=== PATIENT | female | born 1980 | race Caucasian/White ===

== ENCOUNTER 2017-05-24 01:33 | Emergency (ER) | payer BC ==
[2017-05-24 02:16] LABS: Bilirubin Negative (Negative); Blood, Urine Moderate (Negative); Glucose, Urine (Dipstick) Negative (Negative); Ketone, Urine Negative (Negative); Nitrite Negative (Negative); Protein, Urine (Dipstick) 30 mg/dL (Neg-Trace)
[2017-05-24 02:18] LABS: Bacteria/HPF Rare-Few HPF (None Seen); RBC/HPF 21-50 HPF (0-3); Squamous Epithelial 0-3 HPF (0-3)
[2017-05-24 02:37] LABS: Hyaline Casts/LPF NONE SEEN LPF (0-3 Hyaline)
== END 2017-05-24 02:17 | disposition left against medical advice (07) ==
LOC: ERS 01:33
DX: Z53.21 Procedure and treatment not carried out due to patient leaving prior to being seen by health care provider (principal)
CPT/HCPCS: 81003; 81015; 81025

== ENCOUNTER 2017-05-28 18:59 | Inpatient (IN) | payer BC ==
[2017-05-28 20:00] LABS: Bilirubin Negative (Negative); Blood, Urine Moderate (Negative); Clarity CLOUDY (Clear); Glucose, Urine (Dipstick) Negative (Negative); Leukocyte Moderate (Negative); Nitrite Negative (Negative); Protein, Urine (Dipstick) Negative (Neg-Trace); Specific Gravity, Urine 1.012 (1.002-1.036); Urobilinogen 0.2 mg/dL (0.2-1.0)
[2017-05-28 20:03] LABS: Bacteria/HPF Rare-Few HPF (None Seen); Hyaline Casts/LPF 0-3 HYALINE CAST LPF (0-3 Hyaline); Pathc Cast-AUWi Flag 0.81 (0-2.49); WBC/HPF 21-50 HPF (0-3)
[2017-05-28 20:04] LABS: Pregnancy Test - Urine (BHCG) Negative (Negative); Pregu Control Background? CLEAR/WHITE (CLR/WHITE); Pregu Control Bar Appear? YES (CONTROL BAR); Specific Gravity 1.012 (1.002-1.036)
[2017-05-28 20:17] LABS: #Basophils 0.1 thou/uL (0.0-0.2); #Eosinphils 0.3 thou/uL (0.0-0.7); #Monocytes 1.1 thou/uL (0.11-0.59); #Neutrophils 9.7 thou/uL (1.40-6.50); %Basophils 0.6 % (0.0-1.0); %Eosinophils 2.3 % (0.0-10.0); %Lymphocytes 21.2 % (21.0-51.0); %Monocytes 7.5 % (0.0-10.0); %Neutrophils 68.3 % (42.0-75.0); Hemoglobin 13.2 g/dL (12.0-16.0); Mean Corpuscular HGB CONC 32.5 g/dL (32.0-36.0); Mean Corpuscular Hemoglobin 29.7 pg (27.0-31.0); Mean Corpuscular Volume 91.4 fl (81.0-99.0); Mean Platelet Volume 6.9 fL (7.4-10.4); Platelet Count 365 thou/uL (130-400); RBC Distribution Width 11.7 % (11.5-14.5); Red Blood Cell (RBC) Count 4.45 mill/uL (4.20-5.40); White Blood Cell (WBC) Count 14.2 thou/uL (4.8-10.8)
[2017-05-28 20:38] LABS: ALT (SGPT) 15 U/L (8-55); AST (SGOT) 13 U/L (5-34); Albumin 4.1 g/dL (3.5-5.0); Alkaline Phosphatase 77 U/L (40-150); Anion Gap 13 mmol/L (10-20); BUN (Urea Nitrogen) 11 mg/dL (7.0-18.7); Bilirubin, Total 0.2 mg/dL (0.2-1.2); Calc. Creatinine Clearance 0 mL/min (70-130); Calcium 9.7 mg/dL (7.8-10.44); Carbon Dioxide 28 mmol/L (22-29); Chloride 101 mmol/L (98-107); Estimated GFR-MDRD 58; Globulin 3.7 g/dL (2.4-3.5); Glucose 101 mg/dL (70-105); Protein, Total 7.8 g/dL (6.0-8.3); Sodium 138 mmol/L (136-145)
[2017-05-28] MEDS ORDERED: Ketorolac Tromethamine 30 MG/ML VIAL ONE (21:25)
--- NOTE | 2017-05-28 21:41 | CT ---
CT OF ABDOMEN AND PELVIS PERFORMED WITHOUT CONTRAST ENHANCEMENT: 05/28/17 HISTORY: Left flank pain. COMPARISON: 09/26/16 study. Lung bases are clear of infiltrative process. The liver, spleen, pancreas, and gallbladder regions are unremarkable. Right and left adrenal glands are normal. Right and left kidneys are normal in size. There is some pu nctate right renal calculi with some mild right sided hydronephrosis related to an approximately 6 mm calculus which is located at the S1 vertebral body level. This was present on the prior examination. The degree of hydronephrosis is less pronounced. On the left side, there is left sided hydronephrosis and hydroureter related to a proximal left urete ral calculus located just at the ureteropelvic junction level. It measures 8 to 9 mm. There are multi ple lower pole left renal calculi similar in size and other tiny punctate renal calculi. There is no significant periaortic or mesenteric adenopathy. CT OF PELVIS PERFORMED WITHOUT CONTRAST ENHANCEMENT: No adenopathy, mass or free fluid. IMPRESSION: 1. Bilateral renal calculi. 2. Bilateral ureteral calculi with a 6 mm calculus located at the level of S1 with associated mi ld hydronephrosis. There is moderate left sided hydronephrosis related to a stone located approximate ly at the ureteropelvic junction level. POS: WEI
[2017-05-28] MEDS ORDERED: Morphine 4 MG/ML VIAL ONE (22:42)
[2017-05-28] MEDS ORDERED: Ondansetron HCl/PF 4 MG/2 ML Vial ONE (22:43)
[2017-05-28] MEDS ORDERED: cefTRIAXone\\ROCEPHIN 2 GM in Sodium Chloride 0.9% 100 ML IVPB SCH (23:15)
[2017-05-29 01:32] VITALS: BMI 36.1
[2017-05-29] MEDS ORDERED: Ondansetron ODT 4 MG TAB SL PRN (01:46)
[2017-05-29] MEDS ORDERED: Ondansetron HCl/PF 4 MG/2 ML Vial IVP PRN ×2 (01:46→17:28)
[2017-05-29] MEDS ORDERED: Acetaminophen 325 MG TAB PO PRN (01:46)
[2017-05-29] MEDS ORDERED: Tamsulosin HCl 0.4 MG CAP PO SCH (05:00)
[2017-05-29] MEDS: Morphine 4 MG/ML VIAL IV PRN ×2 (05:01→09:21)
[2017-05-29] MEDS: Sodium Chloride 0.9% 1,000 ML IV SCH ×4 (05:01→22:59)
[2017-05-29] MEDS ORDERED: HYDROcodone/Acetaminophen 5/325 mg Tablet PO PRN (10:20)
[2017-05-29] MEDS ORDERED: Ketorolac Tromethamine 30 MG/ML VIAL IVP PRN (10:27)
[2017-05-29] MEDS ORDERED: Cefepime 1 GM in Sodium Chloride 0.9% 100 ML IVPB SCH (10:30)
[2017-05-29] MEDS ORDERED: Morphine 4 MG/ML VIAL SLOW IVP PRN (10:30)
--- NOTE | 2017-05-29 11:56 | HP ---
DATE OF ADMISSION: 05/29/2017 CHIEF COMPLAINT: Abdominal pain. HISTORY OF PRESENT ILLNESS: This is a 37-year-old young white female with a known history of renal s tones in the past. The patient was in her usual state of health until last Thursday when she started noticing acute onset of left CVA pain, left costovertebral angle pain associated with severe nausea and vomiting. The patient did not have any fevers, but she did mention that she was having chills an d rigors. Abdominal pain, she rates as 9/10 in intensity and not relieved with any Tylenol. The pat angela has a significant history of renal stones. She had renal stent placed more than a year ago on t he left side and on the left side ureteral stent was placed and it was completely calcified in July of this year and was removed along with lithotripsy. Due to her heavy calcium deposition, she was re ferred to urologist, Dr. Meehan, who has been following her since her last stent placement. The patie nt does found to have hyperparathyroidism with elevated PTH and calcium, last month, in April, she had a parathyroidectomy. The patient has been closely followed by him. The patient otherwise do no t have any primary care physician and she does not follow up with anybody. She has no other known me dical problems except for the kidney stones problem. She denies having any chest pain. She does hav e nausea and vomiting. No diarrhea. No constipation. Denies having any headache. No dizziness. PAST MEDICAL HISTORY: 1. Recurrent renal stones. 2. Hyperparathyroidism. 3. Hypercalcemia. PAST SURGICAL HISTORY: 1. in the past. 2. The patient had empyema with left lung thoracotomy done 3 years ago. 3. History of ureteric stent placement 2 years ago and stent removal in July 2016. 4. History of parathyroidectomy in April 2017. FAMILY HISTORY: The patient has significant family history with pancreatic cancer in her dad, who di ed at the age of 63 and has a significant renal stone history in all the family members. SOCIAL HISTORY: The patient is a nonsmoker. She smokes electric cigarettes with the high nicotine c ontent. She does drink alcohol occasionally, beers, and she does not do any marijuana or any other i llicit drugs. REVIEW OF SYSTEMS: All 12 systems are reviewed with the patient thoroughly and found to be negative at this time. Systems reviewed are HEENT, CVS, METAL TANK ERECTOR, respiratory, GI, , musculoskeletal, skin integ umentary, psychiatric. The following complete review of systems was negative, unless otherwise mentioned in the HPI or below : CONSTITUTIONAL: Weight loss or gain, sense of well-being, ability to conduct usual activities, exerc ise tolerance. SKIN/BREAST: Rash, itching, changes in hair growth or loss, nail changes, breast lumps, tenderness, swelling, nipple discharge. EYES: Vision, double vision, tearing, blind spots, pain. ENT/MOUTH: Headaches (location, time of onset, duration, precipitating factors), vertigo, lightheadedness, injury. Vision, double vision, tearing, blind spots, pain, nose b leeding, colds, obstruction, discharge, dental difficulties, gingival bleeding, dentures, neck stiffn ess, pain, tenderness, masses in thyroid or other areas CARDIOVASCULAR: Precordial pain, substernal distress, palpitations, syncope, dyspnea on exertion, or thopnea, nocturnal paroxysmal dyspnea, edema, cyanosis, hypertension, heart murmurs, varicosities, ph lebitis, claudication. RESPIRATORY: Pain, shortness of breath, wheezing, stridor, cough, hemoptysis, fever or night sweats GASTROINTESTINAL: Poor appetite, dysphagia, indigestion, abdominal pain, heartburn, eructation, naus ea, vomiting, hematemesis, jaundice, constipation, or diarrhea, abnormal stools (esequiel-colored, tarry, bloody, greasy, foul smelling), flatulence, hemorrhoids, recent changes in bowel habits. GENITOURINARY: Urgency, frequency, dysuria, nocturia, hematuria, polyuria, oliguria, unusual (or tomas nge in) color of urine, stones, hesitancy, change in size of stream, dribbling, acute retention or in continence, libido, potency. MUSCULOSKELETAL: Pain, swelling, redness or heat of muscles or joints, limitation, of motion, muscular weakness, atrophy, cramps. NEUROLOGIC/PSYCHIATRIC: Convulsions, paralyses, tremor, incoordination, parasthesias, difficulties w ith memory of speech, sensory or motor disturbances, or muscular coordination (ataxia, tremor), emoti onal problems, anxiety, depression, previous psychiatric care, unusual perceptions, hallucinations. ALLERGY/IMMUNOLOGIC: Skin rash, anemia, bleeding tendency, polydipsia, polyuria, intolerance to heat or cold. HOME MEDICATIONS: None. ALLERGIES: No known drug allergies. PHYSICAL EXAMINATION: VITAL SIGNS: Blood pressures are 133/90, heart rate is 80, respirations 20, saturation 98%. GENERAL: The patient is moderately built and moderately nourished, does not appear to be in acute di stress. CARDIOVASCULAR: S1, S2 normal. No murmurs, rubs or gallops. LUNGS: Bilateral air entry was equal. No wheezing, no crackles. ABDOMEN: Soft, nontender. No guarding. No rebound tenderness. Bowel sounds normal. The patient h as a severe CVA tenderness on the left side, but no CVA tenderness on the right side. No suprapubic tenderness was noted. MUSCULOSKELETAL: No calf tenderness. No pedal edema. No joint tenderness. No joint swelling. SKIN: No cyanosis, no erythema, no rash, no pallor. NEUROLOGIC: Cranial nerve examination II-XII intact. No focal deficits were noted. LYMPHADENOPATHY: No evidence of any lymphadenopathy was noted. NECK: No JVD. No thyromegaly. The scar is noted for parathyroidectomy. LABORATORY DATA: WBC 14.2, hemoglobin is 13.2, hematocrit is 40.7, platelets are 365. Sodium 138, potassium 4.0, chloride 101, bicarbonate is 28, BUN is 11, creatinine is 1.06. UA was positive for urinary tract infection, also had a moderate amount of hematuria. ASSESSMENT AND PLAN: 1. Sepsis. 2. Obstructive uropathy. 3. Moderate dehydration. PLAN: 1. Plan is to start the patient on IV fluids at this time with 100 mL an hour. We will keep the pat ient n.p.o., and we will consult Urology, Dr. Meehan, who had seen this patient in the past. The vini ent is septic with the flank urinary tract infection and with possibly obstructing ureteric stone. W e will start the patient on cefepime at 1 gram IV q.8 hours, which should cover Pseudomonas and all o ther gram-negative infections. 2. The patient has evidence of mild to moderate hydronephrosis. Renal functions remained stable at this time. We will closely monitor the kidney functions and avoid any nephrotoxic medications. 3. The patient has severe pain, uncontrolled with morphine. We will do Toradol sparingly to avoid a ny nephrotoxicity. 4. Moderate dehydration. We will continue the patient on IV fluids at this time with a normal salin e 100 mL hour. 5. Deep venous thrombosis prophylaxis, SCDs. I spent 70 minutes with this patient.
[2017-05-29] MEDS: Cefepime 1 GM, Admixture Fee 1 EACH in Sterile Water 10 ML SLOW IVP SCH ×2 (12:56→19:58)
[2017-05-29 15:10] LABS: Bilirubin Negative (Negative); Blood, Urine Negative (Negative); Clarity CLEAR (Clear); Glucose, Urine (Dipstick) Negative (Negative); Leukocyte Small (Negative); Nitrite Negative (Negative); Protein, Urine (Dipstick) Negative (Neg-Trace); Specific Gravity, Urine 1.007 (1.002-1.036); Urobilinogen 0.2 mg/dL (0.2-1.0); pH, Urine 6.5 (5.0-9.0)
[2017-05-29 15:11] LABS: Bacteria/HPF None Seen HPF (None Seen); Hyaline Casts/LPF 4-6 HYALINE CAST LPF (0-3 Hyaline); Pathc Cast-AUWi Flag 1.35 (0-2.49)
--- NOTE | 2017-05-29 15:42 | CON ---
DATE OF CONSULTATION: 05/29/2017 INPATIENT CONSULTATION Coverage for Dr. Chavez Meehan REFERRING: Hospitalist. REASON FOR CONSULT: Bilateral ureteral calculi. HISTORY OF PRESENT ILLNESS: Ms. Murcia is a 37-year-old female with morbid obesity with history of recurrent urolithiasis, history of primary hyperparathyroidism. The patient does have significant urologic history, in which she underwent left PCNL, bladder stone treatment with laser lithotripsy due to history of retained ureteral stent. She was recently seen by Dr. Meehan on 11/[address] of the abdomen and pelvis as she had vague right flank pain, she declined. She presents to [facility] due to severe left flank pain. Pain was rated 8-10 on the pain scale, currently on IV morphine. She denies history of fever, has had intermittent nausea. She is currently afebrile, with leukocytosis of 14 with no significant shift. Renal function is stable at 1.06. Calcium within normal limits at 9.7. Her urinalysis does demonstrate hematuria, pyuria; however, it is a contaminated specimen. Moderate leukocytes and negative nitrites noted. Currently, she requires morphine every 4 hours, resting comfortably with some discomfort that has recurred in the left lower back. She denies right flank pain. PAST MEDICAL HISTORY: 1. Recurrent kidney stones, hyperparathyroidism with history of hypercalcemia. 2. History of retained ureteral stent resulting in encrusted ureteral stent, bladder stone. PAST SURGICAL HISTORY: 1. , thoracotomy due to empyema. 2. History of parathyroidectomy in 04/2017 at [facility]. 3. History of left PCNL, cystolitholapaxy by Dr. Meehan 07/2016. 4. Removal of nephrostomy tube, ureteral stent. FAMILY HISTORY: Positive for pancreatic cancer. SOCIAL HISTORY: History of tobacco abuse, currently quit. Denies illicit drug use. REVIEW OF SYSTEMS: Ten point review of systems as above, otherwise noncontributory. ALLERGIES: No known drug allergies. PHYSICAL EXAMINATION: GENERAL: Currently, patient is resting comfortably. VITAL SIGNS: Stable, 97.8, 84, 96, 124/96. GENERAL: Alert and oriented x3. HEENT: Unremarkable. HEART: Regular rate. LUNGS: Clear. ABDOMEN: Obese, protuberant, mild left flank lower quadrant abdominal discomfort on palpation with no rigidity, no rebound. There is no evidence of right flank tenderness. GENITOURINARY: Grossly unremarkable. EXTREMITIES: No cyanosis, clubbing or edema. NEUROLOGIC: No gross focal deficits. PERTINENT LABORATORY DATA AND IMAGIN. White count 14, hemoglobin 13, platelet 265, creatinine 1.06, calcium 9.7. Urinalysis contaminated with 4-6 squamous epithelials, negative nitrites, moderate leukocytes, 11-20 RBCs, 21-[address] of the abdomen and pelvis stone protocol. I did review the images myself. There is a right punctate upper pole renal stone. mild right hydronephrosis secondary to L5-S1, 5-6 mm stone. Left kidney has lower pole stone x2, combination of the two stone moiety measures approximately 1.6-2 cm. Left proximal L3 ureteral stone measuring approximately 9-10 mm. Hounsfield unit is over 1000, left severe hydronephrosis. IMPRESSION AND PLAN: 1. Ms. Murcia is a 37-year-old morbidly obese female with history of hyperparathyroidism. 2. Hypercalcemia, resolved. 3. History of recurrent urolithiasis. 4. History of left retained ureteral stent resulting in encrusted stent, bladder stone, status post laser lithotripsy PCNL resolved. 5. Current admission due to asymptomatic right midureteral calculi, symptomatic left flank pain due to large proximal ureteral calculi with severe hydronephrosis. I discussed with patient regarding cystoscopy, left retrograde stent which she desires to proceed. The patient is in full understanding regarding close followup with her urologist due to her history of retained ureteral stent. She verbalizes understanding and states that she will follow up in a timely manner. I offered the patient a right retrograde stent as well, however options of observation for medical expulsion therapy of the right side discussed as stone is 5-6 mm with mild hydronephrosis. As she has no symptoms, does not desire right ureteral stent. She does agree to proceed with left ureteral stent. The patient is currently n.p.o., broad spectrum antibiotics have been initiated currently. Recheck UA C&S catheterized specimen has been ordered. I anticipate the patient should be able to be discharged home after ureteral stent if pain is adequately controlled. Appointment has been setup with Dr. Meehan 06/11/2017 at 10:00 a.m. to follow up urine culture results. CHANDLER
[2017-05-29] MEDS ORDERED: Fentanyl 100 MCG/2 ML VIAL ONE ×2 (16:30→17:29)
[2017-05-29] MEDS ORDERED: Propofol 200 MG/20 ML VIAL ONE (16:53)
[2017-05-29] MEDS ORDERED: Ondansetron HCl/PF 4 MG/2 ML Vial ONE (16:53)
[2017-05-29] MEDS ORDERED: Dexamethasone 20 MG/5 ML VIAL ONE (16:53)
[2017-05-29] MEDS ORDERED: Lidocaine 1% PF 5 ML VIAL ONE (16:53)
[2017-05-29] MEDS ORDERED: Glycopyrrolate 0.2 MG/ML 5 ML SYRINGE ONE (16:53)
[2017-05-29] MEDS ORDERED: Iothalamate Meglumine 60% 50 ML VIAL FS ONE (17:10)
[2017-05-29] MEDS ORDERED: Promethazine HCl 25 MG/ML VIAL SLOW IVP PRN (17:28)
[2017-05-29] MEDS ORDERED: Promethazine HCl 25 MG/ML VIAL IM PRN (17:28)
[2017-05-29] MEDS ORDERED: Meperidine HCl/PF 25 MG/ML VIAL SLOW IVP PRN (17:28)
[2017-05-29] MEDS ORDERED: Oxybutynin 5 MG TAB PO PRN (17:31)
[2017-05-29] MEDS ORDERED: Phenazopyridine HCl 97.5 MG TABLET PO PRN (17:32)
--- NOTE | 2017-05-29 18:55 | OP ---
DATE OF SEDRVICE: 05/29/2017 PREOPERATIVE DIAGNOSES: 1. Left hydronephrosis due to 10 mm proximal ureteral calculi, left nonobstructing lower pole renal stone approximately 1.6-2 cm. 2. Nonobstructing right mid ureteral calculi at the level of L5, asymptomatic. POSTOPERATIVE DIAGNOSES: 1. Left hydronephrosis due to 10 mm proximal ureteral calculi, left nonobstructing lower pole renal stone approximately 1.6-2 cm. 2. Nonobstructing right mid ureteral calculi at the level of L5, asymptomatic PROCEDURE: Cystoscopy, left retrograde, 6 x 24 double-J ureteral stent. SURGEON: Mayela Nicholson D.O. ANESTHESIA: LMA. COMPLICATIONS: None apparent. SPECIMEN: None. DISPOSITION: To recovery room in stable condition. INTRAOPERATIVE FINDINGS: High-grade obstruction of the left kidney due to large left proximal ureter al stone. INDICATIONS FOR PROCEDURE AND HISTORY: Ms. Murcia is a 37-year-old female with history of morbid o besity, primary hyperparathyroidism with recurrent kidney stones. Patient followed by Dr. Meehan, and the patient was admitted with urologic consultation admitted for left flank pain due to high grade h ydronephrosis due to large proximal ureteral calculi. She has a contralateral nonobstructing renal u reteral calculi, she does not desire ureteral stent as she has no significant discomfort. She desire s to proceed with left ureteral stent due to significant discomfort. Risks and complications and ind ications of the procedure reviewed with her in detail including, but not limited to, bleeding, pain, infection, injury to adjacent organs, urosepsis, injury to kidney, ureter, bladder reviewed. All que stions were answered to her satisfaction, and she desired to proceed. As patient does have a history of retained ureteral stent with encrustation, importance of follow up with her primary urologist sim ple discussed with patient in detail. She verbalizes understanding has an appointment with Dr. Meehan standing 06/11/2016. DESCRIPTION OF THE PROCEDURE: After an informed consent is signed, the patient is taken to the opera ting room, placed in a dorsal lithotomy position with the genital area prepped and draped in the usua l surgical sterile fashion. Preoperative fluoroscopy KUB demonstrates a large left proximal ureteral stone, right ureteral stone was unable to be visualized. Bilateral AZIZA hose, SCDs were placed. Bro ad spectrum antibiotics provided. A 21 [place] cystoscope was utilized for cystoscopy which demonstra aziza unremarkable bladder. The ureteral orifices identified in normal anatomical location. A 5 Frenc h open-ended catheter was utilized for retrograde pyelogram of the left ureter, which demonstrated hi gh-grade obstruction in which I had difficulty opacifying contrast proximal to a large proximal urete ral stone. I was able to pass the open-ended catheter to the level of the stone with manipulation of a 0.35 Glidewire, we were able to negotiate the wire up to the upper pole. Subsequently, we passed a 6 x 24 double-J ureteral stent. She tolerated the procedure well. Transported to the [facility] in stable condition. The patient will be observed. She will most likely be observed overnight giv en surgical intervention later in the afternoon. Anticipation may be discharged in the following mor giana. Followup appointment with Dr. Meehan as in chart. Prescription for [place], ciprofloxacin empiri yuki Flomax, [facility] is in chart.
--- NOTE | 2017-05-29 19:36 | RAD ---
RETROGRADE IVP: 05/29/17 INDICATION: Stent. COMPARISON: Prior CT evaluation dated 05/28/17. FINDINGS: Submitted fluoroscopic images demonstrate retrograde opacification of the left ureter with the proxim al ureteral stone identified on the prior CT seen within the proximal left ureter. Subsequent images demonstrate placement of a left ureteral stent. The stent projects in the expected position. The prox imal left ureteral stone and left nephrolithiasis is unchanged in position. IMPRESSION: IVP as above. POS: WEI
[2017-05-29] MEDS: Docusate 100 MG CAP PO SCH (19:58)
[2017-05-29] MEDS: Famotidine/PF 20 mg/2ml Vial SLOW IVP SCH (19:58)
[2017-05-30] MEDS: Cefepime 1 GM, Admixture Fee 1 EACH in Sterile Water 10 ML SLOW IVP SCH (03:32)
[2017-05-30 04:32] LABS: #Lymphocytes 0.9 thou/uL (1.20-3.40); #Monocytes 0.1 thou/uL (0.11-0.59); #Neutrophils 7.9 thou/uL (1.40-6.50); %Basophils 0.1 % (0.0-1.0); %Eosinophils 0.1 % (0.0-10.0); %Lymphocytes 9.8 % (21.0-51.0); %Monocytes 1.5 % (0.0-10.0); %Neutrophils 88.5 % (42.0-75.0); Hemoglobin 11.7 g/dL (12.0-16.0); Mean Corpuscular HGB CONC 31.4 g/dL (32.0-36.0); Mean Corpuscular Hemoglobin 28.7 pg (27.0-31.0); Mean Corpuscular Volume 91.4 fl (81.0-99.0); Mean Platelet Volume 7.4 fL (7.4-10.4); Platelet Count 334 thou/uL (130-400); Red Blood Cell (RBC) Count 4.09 mill/uL (4.20-5.40); White Blood Cell (WBC) Count 8.9 thou/uL (4.8-10.8)
[2017-05-30 04:52] LABS: Anion Gap 11 mmol/L (10-20); BUN (Urea Nitrogen) 13 mg/dL (7.0-18.7); Calc. Creatinine Clearance 122 mL/min (70-130); Calcium 8.3 mg/dL (7.8-10.44); Carbon Dioxide 21 mmol/L (22-29); Chloride 106 mmol/L (98-107); Estimated GFR-MDRD 63; Glucose 235 mg/dL (70-105); Potassium 4.3 mmol/L (3.5-5.1); Sodium 134 mmol/L (136-145)
[2017-05-30] MEDS: Docusate 100 MG CAP PO SCH (08:26)
[2017-05-30] MEDS: Famotidine/PF 20 mg/2ml Vial SLOW IVP SCH (08:26)
[2017-05-30] MEDS ORDERED: FLU VACC QS2017-18 36 mo. & older 0.5 ML SYRINGE IM ONE (09:00)
[2017-05-30 09:04] VITALS: BP 109/65; TEMP 97.8
[2017-05-30] MEDS: Sodium Chloride 0.9% 1,000 ML IV SCH (10:16)
--- NOTE | 2017-05-30 12:30 | DIS ---
DATE OF ADMISSION: 05/29/2017 DATE OF DISCHARGE: 05/30/2017 ADMITTING DIAGNOSIS: Sepsis. DISCHARGE DIAGNOSIS: Sepsis from obstructive uropathy. SECONDARY DIAGNOSES: 1. Obstructive uropathy with bilateral renal stones, the largest being 6 mm. 2. Bilateral [id number] hydronephrosis. 3. Hyperparathyroidism. 4. Hyperglycemia. CONSULTANTS INVOLVED IN HIS CARE: Dr. Mayela Nicholson. HISTORY OF PRESENT ILLNESS AND HOSPITAL COURSE: In brief, this is a 37-year-old young white female w ith a known history of renal stones in the past, and the patient presented with severe left costovert ebral angle pain associated with severe nausea and vomiting. The patient was noted to have an elevat ed white count of 13,000 and urinalysis was positive and urine cultures still pending. The patient w as started on IV antibiotics with cefepime 1 g t.i.d., and her white count did come back to normal. The patient was seen by Dr. Nicholson, one of the urologists covering for Dr. Meehan. The patient h ad successful stent placement and her pain was relieved. The patient was kept overnight for monitori ng because of the elevated white count and she was on IV antibiotics. The following morning, the pat ient was doing fine. She has no pain problems. Urology suggested the patient could be discharged an d followed up with primary urologist. The patient is discharged home in stable condition and advised to continue on the oral antibiotic at least to complete the course for 7 days. PHYSICAL EXAMINATION: VITAL SIGNS: On the day of discharge, blood pressures are 109/65, heart rate is 72, respiratory rate 20, saturation is 96%, temperature 97.8. GENERAL: The patient is moderately built and moderately nourished, does not appear in acute distress . CARDIOVASCULAR: S1, S2 normal. No murmurs, rubs or gallops. LUNGS: Bilateral air entry was equal. No wheezing, no crackles. ABDOMEN: Soft and nontender. No guarding, no rebound tenderness. There is still mild tenderness wa s noted in the left CVA, but otherwise much improved from yesterday. DISCHARGE INSTRUCTIONS: 1. Continue activity as tolerated. Advised to follow up with Dr. Meehan in 1-2 weeks or as suggested by the Urology. I advised the patient to increase fluid intake. I advised the patient to avoid puja ing calcium tablets. 2. The patient is advised to return to the ER for any worsening pain or any worsening fever. I advi sed to continue the antibiotics and complete the course. I spent 35 minutes with this patient on the day of discharge.
== END 2017-05-30 11:06 | disposition home or self-care (01) | DRG 872 ==
LOC: ERS 18:59 → T4-B 05-29 00:59
PROVIDERS: ADMIT Family Medicine; ATTEND Family Medicine
PROC: 0T778DZ Dilation of Left Ureter with Intraluminal Device, Via Natural or Artificial Opening Endoscopic (ICD-10-PCS; principal; 2017-05-29)
DX: A41.9 Sepsis, unspecified organism (principal); E66.01 Morbid (severe) obesity due to excess calories; N13.2 Hydronephrosis with renal and ureteral calculous obstruction; E21.0 Primary hyperparathyroidism; F17.290 Nicotine dependence, other tobacco product, uncomplicated; E86.0 Dehydration; Z68.36 Body mass index [BMI] 36.0-36.9, adult
CPT/HCPCS: 36415; 74176; 74420; 80048; 80053; 81003; 81015; 81025; 85025; 87086; 90471; 90682; 90732; 96361; 96365; 96375; A4216; C1758; G0008; G0009; J0692; J0696; J1100; J1885; J2001; J2270; J2405; J2704; J3010; J7050; Q2036; Q9961; S0028

== ENCOUNTER 2020-08-01 09:45 | Outpatient (CLI) | payer BC ==
[2020-08-01 11:50] LABS: #Basophils 0.1 10x3/uL (0.0-0.2); #Eosinphils 0.1 10x3/uL (0.0-0.5); #Monocytes 0.5 10x3/uL (0.0-1.1); %Basophils 0.9 % (0.0-2.0); %Eosinophils 1.4 % (0.0-6.0); %Lymphocytes 25.2 % (18.0-47.0); %Monocytes 5.2 % (0.0-10.0); %Neutrophils 66.9 % (40.0-75.0); Mean Corpuscular HGB CONC 32.7 g/dL (32.0-36.0); Mean Corpuscular Hemoglobin 29.2 pg (27.0-33.0); Mean Corpuscular Volume 89.4 fl (81.6-98.3); Mean Platelet Volume 10.4 fl (7.4-10.4); Platelet Count 299 10x3/uL (150-450); RBC Distribution Width 14.4 % (11.5-14.5); Red Blood Cell (RBC) Count 4.79 10x6/uL (3.90-5.03)
[2020-08-01 14:06] LABS: Anion Gap 15 mmol/L (10-20); BUN (Urea Nitrogen) 21 mg/dL (7.0-18.7); Calc. Creatinine Clearance 0 mL/min (70-130); Calcium 9.3 mg/dL (7.8-10.44); Carbon Dioxide 23 mmol/L (22-29); Chloride 109 mmol/L (98-107); Glucose 91 mg/dL (70-105); Potassium 4.5 mmol/L (3.5-5.1); Sodium 142 mmol/L (136-145)
[2020-08-01 21:51] LABS: SARS-CoV-2 PCR by NAA Not Detected (NotDetected)
== END 2020-08-01 09:46 | disposition home or self-care (01) ==
LOC: LABBT 09:45
PROVIDERS: ATTEND Specialist
DX: Z01.818 Encounter for other preprocedural examination (principal); Z20.822 Contact with and (suspected) exposure to COVID-19; M79.89 Other specified soft tissue disorders
CPT/HCPCS: 80048; 85025; 87635; 93005; 93010; U0003; U0005

== ENCOUNTER 2020-08-06 09:55 | Day surgery (SDC) | payer BC ==
[2020-08-02 13:48] VITALS: BMI 38.9
[2020-08-06] MEDS ORDERED: Ketorolac Tromethamine 30 MG/ML VIAL ONE (10:17)
[2020-08-06] MEDS ORDERED: Acetaminophen 500 MG TAB ONE (10:17)
[2020-08-06] MEDS ORDERED: Bupivacaine 0.25% HCL 30 ML VIAL ONE (10:35)
[2020-08-06] MEDS ORDERED: Sodium Bicarbonate 2.5 MEQ/5 ML VIAL ONE (10:35)
[2020-08-06] MEDS ORDERED: XYLOCAINE 2%-EPI 1:100,000 20 ML VIAL ONE (10:35)
[2020-08-06] MEDS ORDERED: PROPOFOL 200 MG/20 ML VIAL ONE (10:37)
[2020-08-06] MEDS ORDERED: Dexamethasone 20 MG/5 ML VIAL ONE (10:37)
[2020-08-06] MEDS ORDERED: Lidocaine 1% PF 5 ML VIAL ONE (10:37)
[2020-08-06] MEDS ORDERED: Ondansetron PF 4 MG/2 ML Vial ONE (10:37)
[2020-08-06] MEDS ORDERED: Fentanyl 100 MCG/2 ML VIAL ONE (12:06)
== END 2020-08-06 15:35 | disposition home or self-care (01) ==
LOC: SDC 09:55
PROVIDERS: ATTEND Specialist
PROC: 0JBF0ZZ Excision of Left Upper Arm Subcutaneous Tissue and Fascia, Open Approach (ICD-10-PCS; principal; 2020-08-06)
DX: M79.89 Other specified soft tissue disorders (principal); I10 Essential (primary) hypertension; F41.9 Anxiety disorder, unspecified; F32.9 Major depressive disorder, single episode, unspecified; F17.290 Nicotine dependence, other tobacco product, uncomplicated; E66.9 Obesity, unspecified; Z68.38 Body mass index [BMI] 38.0-38.9, adult; Z79.899 Other long term (current) drug therapy
CPT/HCPCS: 88304; J0690; J1100; J1885; J2405; J2704; J3010; S0020